=== PATIENT | male | born 1965 | race African-American/Black ===

== ENCOUNTER 2019-03-31 14:28 | Inpatient (IN) | payer OTHER ==
[2019-03-31 19:22] VITALS: BMI 28.0
--- NOTE | 2019-03-31 20:38 | HP ---
CIWA Score Nausea/Vomitin-No Nausea/No Vomiting Muscle Tremors: None Anxiety: 4-Mod. Anxious/Guarded Agitation: 4-Moderately Restless Paroxysmal Sweats: 3 Orientation: 0-Oriented Tacttile Disturbances: 2-Mild Itch/Numbness/Burn Auditory Disturbances: 0-None Visual Disturbances: 0-None Headache: 0-None Present CIWA-Ar Total Score: 13 - Admission Criteria OASAS Guidelines: Admission for Medically Managed Detox: Requires at least one of the followin. CIWA greater than 12 2. Seizures within the past 24 hours 3. Delirium tremens within the past 24 hours 4. Hallucinations within the past 24 hours 5. Acute intervention needed for co occurring medical disorder 6. Acute intervention needed for co occurring psychiatric disorder 7. Severe withdrawal that cannot be handled at a lower level of care (continued vomiting, continued diarrhea, abnormal vital signs) requiring intravenous medication and/or fluids 8. Patient presents the following: CIWA greater than 12 Admission Criteria Met: Admission criteria met Admission ROS [facility] Chief Complaint: C/O WITHDRAWAL SX'S Allergies/Adverse Reactions: Allergies Allergy/AdvReac Type Severity Reaction Status Date / Time No Known Allergies Allergy Verified 03/31/19 19:13 History of Present Illness: 54 Y.O. MALE WITH OPIOID/ALCOHOL/AND CANNABIS DEPENDENCE HERE FOR DETOX. CLIENT IS PRESENTLY ON MMTP 80 MG DAILY. REPORTS DOSED TODAY. DOES NOT RECALL NAME OF HIS PROGRAM BUT REPORTS HE WAS LAST MEDICATED TODAY AND HAS HIS PROGRAM CARD IN HIS PROPERTY. HE IS KNOWN TO THIS PROGRAM. LAST ADMISSION 4 YEARS AGO. HE IS REFERRED TODAY BY HIS CARDIAC CATH TECHNICIAN. FOR HIS ONGOING ALCOHOL ABUSE. HE PRESENTS TODAY WITH C/O WITHDRAWAL SX'S, CIWA 13, SEEKING DETOX TXMENT. MOST RECENT CLEAN TIME 3 YEARS. RELAPSING 1 YEAR AGO. HE DRINKS ALCOHOL DAILY. NEEDING HIS FIRST DRINK IN THE MORNING TO GET THROUGH HIS DAY. DENIES HX/O SEIZURES/ BLACKOUTS/SI/HI/AVH. DOMICILED, SELF EMPLOYED, DENIES LEGALS Exam Limitations: Physical Impairment (AMBULATES WITH CANE FOR UNSTEADY GAIT) - Ebola screening Have you traveled outside of the country in the last 21 days: No (NN) Have you had contact with anyone from an Ebola affected area: No Do you have a fever: No - Review of Systems Constitutional: Chills, Loss of Appetite, Night Sweats, Changes in sleep EENT: reports: Blurred Vision (GLASSES), Dental Problems (MISSING TEETH) Respiratory: reports: No Symptoms reported Cardiac: reports: No Symptoms Reported GI: reports: Poor Appetite, Poor Fluid Intake, Other (INCONTINENT OF STOOL) : reports: Incontinence, Other (SELF CATHERIZATION INDEPENDENT HAS HISOEN SUPPLIES) Musculoskeletal: reports: Back Pain (CHRONIC), Joint Pain (R KNEE BRACE), Muscle Weakness (R KNEE) Integumentary: reports: No Symptoms Reported Neuro: reports: Headache, Numbness, Unsteady Gait (AMBUALTES WITH CANE), Other ( RLS) Endocrine: reports: No Symptoms Reported Hematology: reports: No Symptoms Reported Psychiatric: reports: Orientated x3, Agitated (IRRITABLE), Depressed (DENIES SI/ HI) Other Systems: Reviewed and Negative Patient History - Patient Medical History Hx Anemia: No Hx Asthma: No Hx Chronic Obstructive Pulmonary Disease (COPD): No Hx Cancer: No Hx Cardiac Disorders: No Hx Hypertension: No Hx Hypercholesterolemia: No Hx Pacemaker: No HX Cerebrovascular Accident: No Hx Seizures: No Hx Dementia: No Hx Diabetes: No Hx Gastrointestinal Disorders: No Hx Liver Disease: No Hx Genitourinary Disorders: No Hx Sexually Transmitted Disorders: No Hx Renal Disease (ESRD): No Hx Thyroid Disease: No Hx Human Immunodeficiency Virus (HIV): Yes (HIV+ diagnosed in 2000.) Hx Hepatitis C: No Hx Depression: Yes Hx Suicide Attempt: No Hx Bipolar Disorder: No Hx Schizophrenia: No Other Medical History: 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 - Patient Surgical History Past Surgical History: Yes Hx Neurologic Surgery: No Hx Cataract Extraction: No Hx Cardiac Surgery: No Hx Lung Surgery: No Hx Breast Surgery: No Hx Breast Biopsy: No Hx Abdominal Surgery: No Hx Appendectomy: No Hx Cholecystectomy: No Hx Genitourinary Surgery: No Hx Section: No Hx Orthopedic Surgery: Yes (R KNEE AND FOOT AN SPINAL) Anesthesia Reaction: No - PPD History Previous Implant?: Yes Documented Results: Negative w/proof Implanted On Prior [facility] Admission?: Yes Date: 08/11/14 Results: 0 mm PPD to be Administered?: Yes - Smoking Cessation Smoking history: Current every day smoker Have you smoked in the past 12 months: Yes Aproximately how many cigarettes per day: 5 Cigars Per Day: 0 Hx Chewing Tobacco Use: No Initiated information on smoking cessation: Yes 'Breaking Loose' booklet given: 03/31/19 - Substance & Tx. History Hx Alcohol Use: Yes Hx Substance Use: Yes Substance Use Type: Alcohol, Heroin, Marijuana, Prescribed (METHADONE/MMTP) Hx Substance Use Treatment: Yes ([facility]) - Substances abused Alcohol Substance route: Oral Frequency: Daily Amount used: 1 PINT VODKA Age of first use: 41 Date of last use: 03/30/19 Other Other (specify): PERCOCET Substance route: Oral Frequency: Daily Amount used: 7/10MG Age of first use: 45 Date of last use: 03/31/19 Family Disease History - Family Disease History Family History: Denies Admission Physical Exam [facility] - Vital Signs Vital Signs: Vital Signs - 24 hr 03/31/19 03/31/19 19:12 20:31 Temperature 98.2 F 98.2 F Pulse Rate 68 68 Respiratory 18 18 Rate Blood Pressure 133/91 133/91 - Physical General Appearance: Yes: Mild Distress, Irritable, Anxious HEENTM: Yes: EOMI, Normocephalic, Normal Voice, JEROME, Pharynx Normal Respiratory: Yes: Chest Non-Tender, Lungs Clear, Normal Breath Sounds, No Respiratory Distress, No Accessory Muscle Use Neck: Yes: No masses,lesions,Nodules, Supple Breast: Yes: Breast Exam Deferred Cardiology: Yes: Regular Rhythm, Regular Rate, S1, S2 Abdominal: Yes: Non Tender, Soft, Increased Bowel Sounds, Other (INCONTINENT OF STOOL REPORTED) Genitourinary: Yes: Incontinient (REPORTED) Back: Yes: Surgical Scar Musculoskeletal: Yes: Joint Stiffness (RIGHT KNEE), Other (AMBULATES WITH CANE DUE TO UNSTEADY GAIT) Extremities: Yes: Normal Capillary Refill, Normal Range of Motion, Non-Tender Neurological: Yes: Fully Oriented, Alert, Motor Strength 5/5, Depressed Affect Integumentary: Yes: Dry, Warm Lymphatic: Yes: Within Normal Limits - Diagnostic (1) Alcohol dependence with uncomplicated withdrawal Current Visit: Yes Status: Acute (2) Methadone maintenance therapy patient Current Visit: Yes Status: Chronic (3) Cannabis abuse, uncomplicated Current Visit: Yes Status: Acute (4) Substance induced mood disorder Current Visit: Yes Status: Chronic (5) Ambulates with cane Current Visit: Yes Status: Chronic (6) Chronic lower back pain Current Visit: Yes Status: Chronic Qualifiers: Back pain laterality: unspecified (7) HIV (human immunodeficiency virus infection) Current Visit: Yes Status: Chronic Qualifiers: HIV symptom status: unspecified Qualified Code(s): B20 - Human immunodeficiency virus [HIV] disease (8) Nicotine dependence Current Visit: Yes Status: Chronic Qualifiers: Nicotine product type: cigarettes Substance use status: uncomplicated Qualified Code(s): F17.210 - Nicotine dependence, cigarettes, uncomplicated (9) Sciatic nerve pain Current Visit: Yes Status: Chronic Qualifiers: Laterality: unspecified laterality Qualified Code(s): M54.30 - Sciatica, unspecified side (10) Uses brace Current Visit: Yes Status: Chronic Comment: RIGHT KNEE Cleared for Admission [facility] - Detox or Rehab [facility] Level of Care: Medically Managed Detox Regimen/Protocol: Librium Claeared for Rehab Admission: No Breathalyzer - Breathalyzer Breathalyzer: 0 Urine Drug Screen - Test Device Lot number: [id number] Expiration date: 12/15/20 - Control Is test valid?: Yes - Results Drug screen NEGATIVE: No Urine drug screen results: THC-Marijuana, FEN-Fentanyl, MOP-Opiates, OXY- Oxycodone, MTD-Methadone Inpatient Rehab Admission - Rehab Decision to Admit Inpatient rehab admission?: No
[2019-03-31] MEDS ORDERED: ONDANSETRON *ODT* 4 MG TABLET SL PRN (20:50)
[2019-03-31] MEDS ORDERED: hydrOXYzine PAMOATE 25 MG CAPSULE (FP) PO PRN (20:50)
[2019-03-31] MEDS ORDERED: BISMUTH SUBSALICYLATE 524 MG/30 ML UD PO PRN (20:50)
[2019-03-31] MEDS ORDERED: MAGNESIUM CITRATE 300 ML BOTTLE PO PRN (20:50)
[2019-03-31] MEDS ORDERED: MAGNESIUM HYDROX 2400MG/30ML ORAL SUSPENSION 30 ML CUP PO PRN (20:50)
[2019-03-31] MEDS ORDERED: ACETAMINOPHEN 325 MG TABLET (FP) PO PRN (20:50)
[2019-03-31] MEDS ORDERED: guaiFENesin 200 MG/10 ML 10 ML UNIT-DOSE CUPS PO PRN (20:50)
[2019-03-31] MEDS ORDERED: MELATONIN 5 MG TABLETS PO PRN (20:50)
[2019-03-31] MEDS ORDERED: MAG HYDROX/AL HYDROX/SIMETH 30 ML UNIT-DOSE CUP PO PRN (20:50)
[2019-03-31] MEDS ORDERED: DICYCLOMINE HCL 10 MG CAPSULE PO PRN (20:50)
[2019-03-31] MEDS ORDERED: METHOCARBAMOL 500 MG TABLET PO PRN (20:50)
[2019-03-31] MEDS ORDERED: P-EPHED 60MG/TRIPROLIDI 2.5MG TABLET PO PRN (20:50)
[2019-03-31] MEDS ORDERED: MENTHOL/PHENOL 1 EACH UD MM PRN (20:50)
[2019-03-31] MEDS ORDERED: chlordiazePOXIDE HCL 25 MG CAPSULE PO PRN (20:50)
[2019-03-31] MEDS: THIAMINE HCL 100 MG TABLET (FP) PO SCH (23:03)
[2019-03-31] MEDS: PREGABALIN 100 MG CAPSULE PO SCH (23:04)
[2019-03-31] MEDS: chlordiazePOXIDE HCL 25 MG CAPSULE PO SCH (23:07)
[2019-04-01] MEDS: chlordiazePOXIDE HCL 25 MG CAPSULE PO SCH ×2 (07:03→10:49)
[2019-04-01] MEDS ORDERED: METHADONE HCL 40 MG DISPERSABLE TABLET PO SCH (10:00)
--- NOTE | 2019-04-01 10:18 | PN ---
S CIWA - CIWA Score Nausea/Vomitin-No Nausea/No Vomiting Muscle Tremors: 2 Anxiety: 2 Agitation: 2 Paroxysmal Sweats: 3 Orientation: 0-Oriented Tacttile Disturbances: 0-None Auditory Disturbances: 0-None Visual Disturbances: 0-None Headache: 2-Mild CIWA-Ar Total Score: 11 BHS Progress Note (SOAP) Subjective: c/o sweats, headache, anxiety, and shakes. Objective: 04/01/19 10:18 Vital Signs 04/01/19 04/01/19 04/01/19 03:30 06:10 06:30 Temperature 98.2 F Pulse Rate 60 Respiratory 18 18 18 Rate Blood Pressure 105/65 04/01/19 09:26 Temperature 98.2 F Pulse Rate 73 Respiratory 20 Rate Blood Pressure 130/82 Labs pending. Assessment: 04/01/19 10:18 AOX3, in no acute distress Full ROM, ambulating in the unit. Withdrawal symptoms. Plan: continue detox.
[2019-04-01] MEDS ORDERED: METHADONE HCL 10 MG TABLET ONE (10:45)
[2019-04-01] MEDS ORDERED: METHADONE HCL 40 MG DISPERSABLE TABLET ONE (10:45)
[2019-04-01 10:46] LABS: BILIRUBIN,TOTAL 0.4 mg/dL (0.2-1); BLOOD UREA NITROGEN 14.5 mg/dL (7-18); CALCIUM 8.3 mg/dL (8.5-10.1); POTASSIUM 3.8 mmol/L (3.5-5.1); TOT PROT 6.5 g/dl (6.4-8.2)
[2019-04-01] MEDS: PREGABALIN 100 MG CAPSULE PO SCH ×2 (10:48→22:08)
[2019-04-01] MEDS: PRENATAL VITAMINS W/ FOLIC ACID TABLET (FP) PO SCH (10:48)
[2019-04-01] MEDS: METHADONE 40 MG, METHADONE 30 MG PO SCH (10:48)
[2019-04-01] MEDS: NICOTINE 14 MG/24 HOURS TOPICAL PATCH TD SCH (10:49)
[2019-04-01 11:13] LABS: HEMATOCRIT 35.9 % (35.4-49); HEMOGLOBIN 12.2 GM/dL (11.7-16.9); MCH 35.6 pg (25.7-33.7); MEAN CELL VOLUME 104.7 fl (80-96); MEAN PLT VOLUME 8.7 fl (7.5-11.1); RBC 3.43 M/mm3 (4.00-5.60); RDW 13.6 % (11.9-15.9); WHITE BLOOD COUNT 4.9 K/mm3 (4.0-10.0)
[2019-04-01 11:32] LABS: PLATELET COUNT 238 K/MM3 (134-434)
[2019-04-01] MEDS: IBUPROFEN 400 MG TABLET (FP) PO PRN (13:07)
[2019-04-01] MEDS ORDERED: LORazepam 1 MG TABLET PO PRN (14:19)
--- NOTE | 2019-04-01 14:30 | PN ---
S Progress Note Note: Pt's Liver function test is elevated AST- 243 ALT- 73. Librium protocol changed to Ativan protocol. Unable to start Genvoya due to elevated Liver enzymes. will repeat liver function test tomorrow.
--- NOTE | 2019-04-01 17:24 | CONSULT ---
[facility] Psychiatric Consult - Data Date of interview: 04/01/19 Admission source: [facility] Identifying data: Readmission to [facility] for this 54 y/o AA male referred by his case management rn for detoxification (alcohol, cannabis, heroin). Examined at [address] [place] [address]. Patient is single, no children, domiciled and employed (as per self- report). Substance Abuse History: Confirmed by patient. Details in current [facility] report as follows : Smoking history: Current every day smoker. Have you smoked in the past 12 months: Yes. Aproximately how many cigarettes per day: 5. Cigars Per Day: 0. Hx Chewing Tobacco Use: No. Initiated information on smoking cessation : Yes. 'Breaking Loose' booklet given: 03/31/19. - Substance & Tx. History. Hx Alcohol Use: Yes. Hx Substance Use: Yes. Substance Use Type: Alcohol, Heroin, Marijuana, Prescribed (METHADONE/MMTP). Hx Substance Use Treatment: Yes ([facility]). - Substances abused. Alcohol. Substance route: Oral. Frequency: Daily. Amount used: 1 PINT VODKA. Age of first use: 41. Date of last use: 03/30/19. Other. Other (specify): PERCOCET. Substance route: Oral. Frequency: Daily. Amount used: 7/10MG. Age of first use: 45. Date of last use: 03/31/19 Medical History: Medical profile is remarkable for history of neurosurgery ( spinal cord injury for abcess) in [address] [facility] (retained for four consecutive months). Brife history of rseidual paraplegia (self-report). Patient is now ambulating with a cane. Presents with urinary + fecal incontinence. Psychiatric History: Patient denies history of psychiatric hospitalizations. However, a review of records ([facility]) yields evidence of a different psychiatric profile reported to another clinician in 2014 at [facility] : patient had endorsed a history of three psychiatric hospitalizations and OPD care at [facility]. Was prescribed trazodone at the time. Mr Alejandro has received the diagnosis of MDD. Patient denies history of suicide attempts. Physical/Sexual Abuse/Trauma History: Severe traumas : serious medical conditions and physical disabilities. Additional Comment: Urine drug screen results: THC-Marijuana, FEN-Fentanyl, MOP- Opiates, OXY-Oxycodone, MTD-Methadone. Noted. Mental Status Exam - Mental Status Exam Alert and Oriented to: Time, Place, Person Cognitive Function: Good Patient Appearance: Well Groomed Mood: Withdrawn, Irritable Affect: Mood Congruent, Constricted Patient Behavior: Fatigued, Appropriate, Cooperative Speech Pattern: Clear Voice Loudness: Normal Thought Process: Goal Oriented Thought Disorder: Not Present Hallucinations: Denies Suicidal Ideation: Denies Homicidal Ideation: Denies Insight/Judgement: Poor Sleep: Well Appetite: Good Gait/Station: Other (unsteady, slow; walks with a cane) Psychiatric Findings - Problem List ([place] 1, 2,3) (1) Alcohol dependence with uncomplicated withdrawal Current Visit: Yes Status: Acute (2) Opioid dependence on agonist therapy Current Visit: Yes Status: Chronic (3) Cannabis abuse, uncomplicated Current Visit: Yes Status: Acute (4) Nicotine dependence Current Visit: Yes Status: Chronic Qualifiers: Nicotine product type: cigarettes Substance use status: uncomplicated Qualified Code(s): F17.210 - Nicotine dependence, cigarettes, uncomplicated (5) Substance induced mood disorder Current Visit: Yes Status: Chronic (6) History of depression Current Visit: Yes Status: Chronic - Initial Treatment Plan Initial Treatment Plan: Psychoeducation. Records reviewed ([facility]). Psychoeducation and support. Sleep hygiene. Detoxification in progress. Falls precautions. AA/NA meetings. Observation.
[2019-04-01] MEDS: NICOTINE POLACRILEX 2 MG GUM BUC PRN (20:23)
[2019-04-01] MEDS: THIAMINE HCL 100 MG TABLET (FP) PO SCH (22:08)
[2019-04-01] MEDS ORDERED: chlordiazePOXIDE HCL 25 MG CAPSULE PO SCH (23:00)
[2019-04-01] MEDS ORDERED: LORazepam 2 MG TABLET PO ONE (23:00)
[2019-04-02] MEDS ORDERED: METHADONE HCL 40 MG DISPERSABLE TABLET ONE (04:10)
[2019-04-02] MEDS ORDERED: METHADONE HCL 10 MG TABLET ONE (04:10)
[2019-04-02] MEDS: METHADONE 40 MG, METHADONE 30 MG PO SCH (07:36)
[2019-04-02] MEDS: ACETAMINOPHEN 325 MG TABLET (FP) PO PRN ×2 (07:39→18:20)
[2019-04-02] MEDS: PREGABALIN 100 MG CAPSULE PO SCH ×2 (10:20→22:57)
[2019-04-02] MEDS: PRENATAL VITAMINS W/ FOLIC ACID TABLET (FP) PO SCH (10:20)
[2019-04-02] MEDS: NICOTINE 14 MG/24 HOURS TOPICAL PATCH TD SCH (10:21)
[2019-04-02] MEDS: NICOTINE POLACRILEX 2 MG GUM BUC PRN ×2 (10:21→13:08)
--- NOTE | 2019-04-02 11:02 | PN ---
S CIWA - CIWA Score Nausea/Vomitin-Mild Nausea/No Vomiting Muscle Tremors: 2 Anxiety: 2 Agitation: 2 Paroxysmal Sweats: 2 Orientation: 0-Oriented Tacttile Disturbances: 1-Very Mild Itch/Numbness Auditory Disturbances: 0-None Visual Disturbances: 0-None Headache: 0-None Present CIWA-Ar Total Score: 10 BHS Progress Note (SOAP) Subjective: roldan co ongoing anxiety, shakiness, poor sleep, gi distubance Objective: 04/02/19 11:01 Laboratory Tests 04/01/19 04/01/19 04/01/19 07:40 07:40 07:40 WBC 4.9 RBC 3.43 L Hgb 12.2 Hct 35.9 MCV 104.7 H MCH 35.6 H MCHC 34.0 RDW 13.6 Plt Count 238 D MPV 8.7 Sodium 142 Potassium 3.8 Chloride 109 H Carbon Dioxide 28 Anion Gap 5 L BUN 14.5 Creatinine 1.0 Est GFR (CKD-EPI)AfAm 99.15 Est GFR (CKD-EPI)NonAf 85.55 Random Glucose 79 Calcium 8.3 L Total Bilirubin 0.4 AST 243 H ALT 73 H Alkaline Phosphatase 87 Total Protein 6.5 Albumin 3.0 L RPR Titer Nonreactive repeat liver function pending Vital Signs - 24 hr 04/01/19 04/01/19 04/01/19 13:27 17:40 21:31 Temperature 98.2 F 97.7 F 98.5 F Pulse Rate 67 72 62 Respiratory 18 16 18 Rate Blood Pressure 124/81 98/71 128/78 04/02/19 04/02/19 04/02/19 00:30 03:30 06:35 Temperature 98.9 F Pulse Rate 64 Respiratory 18 18 18 Rate Blood Pressure 119/80 04/02/19 09:16 Temperature 97.9 F Pulse Rate 97 H Respiratory 20 Rate Blood Pressure 125/89 Assessment: 04/02/19 11:02 alcohol withdrawal alcohol dependence liver function abnormality Plan: fu repeat lfts cont detox protocol
[2019-04-02 11:12] LABS: BILIRUBIN,DIRECT 0.1 mg/dL (0.0-0.2); BILIRUBIN,TOTAL 0.4 mg/dL (0.2-1); TOT PROT 6.7 g/dl (6.4-8.2)
[2019-04-02] MEDS: IBUPROFEN 400 MG TABLET (FP) PO PRN ×3 (11:19→23:52)
--- NOTE | 2019-04-02 16:54 | EKG ---
Test Reason : Blood Pressure : / mmHG Vent. Rate : 064 BPM Atrial Rate : 064 BPM P-R Int : 150 ms QRS Dur : 088 ms QT Int : 402 ms P-R-T Axes : 041 063 046 degrees QTc Int : 414 ms NORMAL SINUS RHYTHM NORMAL ECG NO PREVIOUS ECGS AVAILABLE Confirmed by MD CINTIA, HUMA ([id number]) on 04/02/2019 4:54:16 PM Referred By: Confirmed By:HUMA CHAMBERLAIN MD
[2019-04-02 22:51] LABS: URINE APPEARANCE CLOUDY; URINE BILIRUBIN NEGATIVE (NEGATIVE); URINE COLOR YELLOW; URINE GLUCOSE (UA) NEGATIVE (NEGATIVE); URINE KETONE TRACE (NEGATIVE); URINE LEUK ESTERASE 3+ (NEGATIVE); URINE NITRITE NEGATIVE (NEGATIVE); URINE PROTEIN 2+ (NEGATIVE)
[2019-04-02] MEDS: THIAMINE HCL 100 MG TABLET (FP) PO SCH (22:57)
[2019-04-02] MEDS: LORazepam 1 MG TABLET PO SCH (22:57)
[2019-04-02] MEDS ORDERED: chlordiazePOXIDE HCL 10 MG CAPSULE PO SCH (23:00)
[2019-04-02] MEDS ORDERED: chlordiazePOXIDE HCL 10 MG CAPSULE PO PRN (23:00)
[2019-04-02 23:26] LABS: URINE BACTERIA FEW /hpf (NEGATIVE)
[2019-04-03] MEDS ORDERED: METHADONE HCL 10 MG TABLET ONE (04:56)
[2019-04-03] MEDS ORDERED: METHADONE HCL 40 MG DISPERSABLE TABLET ONE (04:56)
[2019-04-03] MEDS: METHADONE 40 MG, METHADONE 30 MG PO SCH (05:36)
[2019-04-03] MEDS: ACETAMINOPHEN 325 MG TABLET (FP) PO PRN ×3 (05:37→22:39)
[2019-04-03] MEDS: LORazepam 1 MG TABLET PO SCH ×3 (06:19→17:32)
[2019-04-03] MEDS: NICOTINE 14 MG/24 HOURS TOPICAL PATCH TD SCH (10:57)
[2019-04-03] MEDS: PREGABALIN 100 MG CAPSULE PO SCH ×2 (10:57→22:34)
[2019-04-03] MEDS: PRENATAL VITAMINS W/ FOLIC ACID TABLET (FP) PO SCH (10:57)
[2019-04-03] MEDS: IBUPROFEN 400 MG TABLET (FP) PO PRN ×2 (11:01→18:33)
[2019-04-03] MEDS: NICOTINE POLACRILEX 2 MG GUM BUC PRN (12:18)
--- NOTE | 2019-04-03 13:52 | PN ---
[facility] CIWA - CIWA Score Nausea/Vomitin-No Nausea/No Vomiting Muscle Tremors: None Anxiety: 0-No Anxiety, at Ease Agitation: 1-Slight > Activity Paroxysmal Sweats: No Perspiration Orientation: 0-Oriented Tacttile Disturbances: 0-None Auditory Disturbances: 0-None Visual Disturbances: 0-None Headache: 0-None Present CIWA-Ar Total Score: 1 BHS Progress Note (SOAP) Subjective: Patient denies current Withdrawal / Detox symptoms and reports that he feels well overall at this time. Objective: PATIENT A & O X 3, OBSERVED AMBULATING ON UNIT UNASSISTED. IN NO ACUTE DISTRESS. 04/03/19 13:49 Vital Signs Temperature 97.1 F L 04/03/19 13:04 Pulse Rate 74 04/03/19 13:04 Respiratory Rate 20 04/03/19 13:04 Blood Pressure 100/68 04/03/19 13:04 O2 Sat by Pulse Oximetry (%) Laboratory Tests 04/01/19 04/01/19 04/01/19 07:40 07:40 07:40 WBC 4.9 RBC 3.43 L Hgb 12.2 Hct 35.9 MCV 104.7 H MCH 35.6 H MCHC 34.0 RDW 13.6 Plt Count 238 D MPV 8.7 Sodium 142 Potassium 3.8 Chloride 109 H Carbon Dioxide 28 Anion Gap 5 L BUN 14.5 Creatinine 1.0 Est GFR (CKD-EPI)AfAm 99.15 Est GFR (CKD-EPI)NonAf 85.55 Random Glucose 79 Calcium 8.3 L Total Bilirubin 0.4 Direct Bilirubin AST 243 H ALT 73 H Alkaline Phosphatase 87 Total Protein 6.5 Albumin 3.0 L Urine Color Urine Appearance Urine pH Ur Specific [place] Urine Protein Urine Glucose (UA) Urine Ketones Urine Blood Urine Nitrite Urine Bilirubin Urine Urobilinogen Ur Leukocyte Esterase Urine WBC (Auto) Urine RBC (Auto) Urine Casts (Auto) U Pathogenic Cast Auto U Epithel Cells (Auto) Urine Bacteria (Auto) Urine Yeast (Auto) RPR Titer Nonreactive 04/02/19 04/02/19 07:30 16:00 WBC RBC Hgb Hct MCV MCH MCHC RDW Plt Count MPV Sodium Potassium Chloride Carbon Dioxide Anion Gap BUN Creatinine Est GFR (CKD-EPI)AfAm Est GFR (CKD-EPI)NonAf Random Glucose Calcium Total Bilirubin 0.4 Direct Bilirubin 0.1 AST 289 H ALT 87 H Alkaline Phosphatase 86 Total Protein 6.7 Albumin 3.0 L Urine Color Yellow Urine Appearance Cloudy Urine pH 6.0 Ur Specific [place] 1.034 Urine Protein 2+ H Urine Glucose (UA) Negative Urine Ketones Trace H Urine Blood 2+ H Urine Nitrite Negative Urine Bilirubin Negative Urine Urobilinogen 1.0 Ur Leukocyte Esterase 3+ H Urine WBC (Auto) 5-10 Urine RBC (Auto) 2-5 Urine Casts (Auto) None U Pathogenic Cast Auto None U Epithel Cells (Auto) None Urine Bacteria (Auto) Few Urine Yeast (Auto) None RPR Titer LABS NOTED. PATIENT DENIES ANY UNUSUAL URINARY COMPLAINTS (BURNING, PAIN, FREQUENCY, URGENCY , HESITANCY). 04/03/19 15:31 Assessment: 04/03/19 13:50 WITHDRAWAL SYMPTOMS. ELEVATED LIVER ENZYMES (AST, ALT). Plan: CONTINUE DETOX. INCREASE DAILY PO FLUID / WATER INTAKE. PATIENT ADVISED TO FOLLOW-UP WITH CHAINER AFTER DISCHARGE FROM DETOX FOR GENERAL MEDICAL ASSESSMENT AND FOR ELEVATED LIVER ENZYMES NOTED ON DETOX ADMISSION LABORATORY ASSESSMENT. PATIENT VERBALIZED UNDERSTANDING OF RECOMMENDATION. COPIES OF RESULTS OF ALL LABS DRAWN WHILE ADMITTED FOR DETOX GIVEN TO PATIENT AT TIME OF DISCHARGE FROM DETOX UNIT. PATIENT SCHEDULED FOR D/C TOMORROW.
[2019-04-03] MEDS: BENZOCAINE 20 % GEL TUBE MM PRN ×2 (15:30→22:35)
[2019-04-03] MEDS: LIDOCAINE VISCOUS 2% ORAL/TOP 20 ML UNIT-DOSE CUP MM PRN ×2 (16:40→22:39)
[2019-04-03] MEDS: THIAMINE HCL 100 MG TABLET (FP) PO SCH (22:34)
[2019-04-03] MEDS: LORazepam 0.5 MG TABLET PO SCH (22:34)
[2019-04-03] MEDS ORDERED: chlordiazePOXIDE HCL 10 MG CAPSULE PO SCH (23:00)
[2019-04-03] MEDS ORDERED: LORazepam 0.5 MG TABLET PO PRN (23:00)
[2019-04-04] MEDS: IBUPROFEN 400 MG TABLET (FP) PO PRN ×2 (02:23→10:15)
[2019-04-04] MEDS ORDERED: METHADONE HCL 10 MG TABLET ONE (04:55)
[2019-04-04] MEDS ORDERED: METHADONE HCL 40 MG DISPERSABLE TABLET ONE (04:56)
[2019-04-04] MEDS: METHADONE 40 MG, METHADONE 30 MG PO SCH (06:02)
[2019-04-04] MEDS: ACETAMINOPHEN 325 MG TABLET (FP) PO PRN (06:03)
[2019-04-04] MEDS: BENZOCAINE 20 % GEL TUBE MM PRN (06:08)
[2019-04-04] MEDS: LORazepam 0.5 MG TABLET PO SCH ×2 (06:08→10:15)
[2019-04-04 09:33] VITALS: BP 123/87; PULSE 116; TEMP 98.9
[2019-04-04] MEDS: PREGABALIN 100 MG CAPSULE PO SCH (10:16)
[2019-04-04] MEDS: NICOTINE 14 MG/24 HOURS TOPICAL PATCH TD SCH (10:16)
[2019-04-04] MEDS: PRENATAL VITAMINS W/ FOLIC ACID TABLET (FP) PO SCH (10:16)
--- NOTE | 2019-04-04 15:48 | DS ---
[facility] Detox Discharge Summary Admission Date: 03/31/19 Discharge Date: 04/04/19 - History Present History: Alcohol Dependence, Cannabis Dependence Additional Comments: PATIENT GOING HOME AT THIS TIME TO ATTEND TO PERSONAL MATTERS. PATIENT ADVISED TO CONSIDER LOCAL 12-STEP / NA / AA OUTPATIENT SUPPORT GROUP PROGRAMS FOR AFTERCARE. PATIENT VERBALIZED UNDERSTANDING OF RECOMMENDATION. PATIENT AGAIN ADVISED TO FOLLOW-UP WITH MECHANICAL DESIGN [employer] AFTER DISCHARGE FROM DETOX FOR GENERAL MEDICAL ASSESSMENT AND FOR ELEVATED LIVER ENZYMES NOTED ON DETOX ADMISSION LABORATORY ASSESSMENT AND FOR HISTORY OF SELF-CATHETERIZATION FOR URINARY BLADDER DYSFUNCTION AFTER SPINAL CORD INJURY. PATIENT VERBALIZED UNDERSTANDING OF ALL RECOMMENDATIONS PRESENTED TO HIM PRIOR TO TIME OF DISCHARGE FROM DETOX UNIT. COPIES OF RESULTS OF ALL LABS DRAWN WHILE ADMITTED FOR DETOX GIVEN TO PATIENT AT TIME OF DISCHARGE FROM DETOX UNIT. PATIENT WAS DISCHARGED FROM DETOX UNIT IN STABLE MEDICAL CONDITION. Pertinent Past History: Depression, History Of Spinal Cord Injury, History Of Bladder Incontinence (Due to Spinal Cord Injury), H.I.V., Use Of Cane For Ambulatory Assistance, Chronic Lower Back Pain, Nicotine Dependence, Use Of Supportive Brace For Right Knee, History Of Sciatic Nerve Pain, M.M.T.P. - Physical Exam Results Vital Signs: Vital Signs Temperature 98.9 F 04/04/19 09:32 Pulse Rate 116 H 04/04/19 09:32 Respiratory Rate 20 04/04/19 09:32 Blood Pressure 123/87 04/04/19 09:32 O2 Sat by Pulse Oximetry (%) Pertinent Admission Physical Exam Findings: WITHDRAWAL SYMPTOMS. Laboratory Tests 04/01/19 04/01/19 04/01/19 07:40 07:40 07:40 WBC 4.9 RBC 3.43 L Hgb 12.2 Hct 35.9 MCV 104.7 H MCH 35.6 H MCHC 34.0 RDW 13.6 Plt Count 238 D MPV 8.7 Sodium 142 Potassium 3.8 Chloride 109 H Carbon Dioxide 28 Anion Gap 5 L BUN 14.5 Creatinine 1.0 Est GFR (CKD-EPI)AfAm 99.15 Est GFR (CKD-EPI)NonAf 85.55 Random Glucose 79 Calcium 8.3 L Total Bilirubin 0.4 Direct Bilirubin AST 243 H ALT 73 H Alkaline Phosphatase 87 Total Protein 6.5 Albumin 3.0 L Urine Color Urine Appearance Urine pH Ur Specific [place] Urine Protein Urine Glucose (UA) Urine Ketones Urine Blood Urine Nitrite Urine Bilirubin Urine Urobilinogen Ur Leukocyte Esterase Urine WBC (Auto) Urine RBC (Auto) Urine Casts (Auto) U Pathogenic Cast Auto U Epithel Cells (Auto) Urine Bacteria (Auto) Urine Yeast (Auto) RPR Titer Nonreactive 04/02/19 04/02/19 07:30 16:00 WBC RBC Hgb Hct MCV MCH MCHC RDW Plt Count MPV Sodium Potassium Chloride Carbon Dioxide Anion Gap BUN Creatinine Est GFR (CKD-EPI)AfAm Est GFR (CKD-EPI)NonAf Random Glucose Calcium Total Bilirubin 0.4 Direct Bilirubin 0.1 AST 289 H ALT 87 H Alkaline Phosphatase 86 Total Protein 6.7 Albumin 3.0 L Urine Color Yellow Urine Appearance Cloudy Urine pH 6.0 Ur Specific [place] 1.034 Urine Protein 2+ H Urine Glucose (UA) Negative Urine Ketones Trace H Urine Blood 2+ H Urine Nitrite Negative Urine Bilirubin Negative Urine Urobilinogen 1.0 Ur Leukocyte Esterase 3+ H Urine WBC (Auto) 5-10 Urine RBC (Auto) 2-5 Urine Casts (Auto) None U Pathogenic Cast Auto None U Epithel Cells (Auto) None Urine Bacteria (Auto) Few Urine Yeast (Auto) None RPR Titer LABS NOTED. - Treatment Hospital Course: Detox Protocol Followed, Detoxed Safely, Responded well, Discharged Condition Good Patient has Accepted a Rehab Referral to: PATIENT ADVISED TO CONSIDER LOCAL 12- STEP/NA/AA OUTPATIENT SUPPORT GROUP. - Medication Discharge Medications: Ambulatory Orders Elviteg/Cob/Emtri/Tenof Alafen [Genvoya Tablet] 1 each PO DAILY 03/31/19 Loperamide HCl [Imodium -] 2 mg PO DAILY 03/31/19 - Diagnosis (1) Cannabis abuse, uncomplicated Status: Acute (2) Elevated liver enzymes Status: Acute (3) Ambulates with cane Status: Chronic (4) Chronic lower back pain Status: Chronic Qualifiers: Back pain laterality: unspecified Sciatica presence: with sciatica Sciatica laterality: sciatica laterality unspecified Qualified Code(s): M54.40 - Lumbago with sciatica, unspecified side; G89.29 - Other chronic pain (5) HIV (human immunodeficiency virus infection) Status: Chronic Qualifiers: HIV symptom status: unspecified Qualified Code(s): B20 - Human immunodeficiency virus [HIV] disease (6) History of depression Status: Chronic (7) Methadone maintenance therapy patient Status: Chronic (8) Nicotine dependence Status: Chronic Qualifiers: Nicotine product type: cigarettes Substance use status: uncomplicated Qualified Code(s): F17.210 - Nicotine dependence, cigarettes, uncomplicated (9) Sciatic nerve pain Status: Chronic Qualifiers: Laterality: unspecified laterality Qualified Code(s): M54.30 - Sciatica, unspecified side (10) Substance induced mood disorder Status: Chronic (11) Uses brace Status: Chronic (12) Alcohol dependence with uncomplicated withdrawal Status: Acute - AMA Did Patient Leave Against Medical Advice: No
== END 2019-04-04 12:33 | disposition home or self-care (01) | DRG 897 ==
LOC: YASAS 14:28 → Y3N 21:34
PROVIDERS: ADMIT Surgery; ATTEND Surgery
PROC: HZ2ZZZZ Detoxification Services for Substance Abuse Treatment (ICD-10-PCS; principal; 2019-03-31)
DX: F10.230 Alcohol dependence with withdrawal, uncomplicated (principal); F11.20 Opioid dependence, uncomplicated; F12.20 Cannabis dependence, uncomplicated; F17.210 Nicotine dependence, cigarettes, uncomplicated; F19.24 Other psychoactive substance dependence with psychoactive substance-induced mood disorder; F32.9 Major depressive disorder, single episode, unspecified; Z21 Asymptomatic human immunodeficiency virus [HIV] infection status; M54.30 Sciatica, unspecified side; M54.5 Low back pain; G89.29 Other chronic pain; R94.5 Abnormal results of liver function studies; R26.89 Other abnormalities of gait and mobility; Z99.89 Dependence on other enabling machines and devices
CPT/HCPCS: 36415; 80053; 80076; 81003; 85027; 86593; 93005; 93010